=== PATIENT | female | born 1980 | race Caucasian/White ===

== ENCOUNTER 2020-02-01 06:49 | Emergency (ER) | payer OTHER ==
[~2020-02-01] VITALS: Ht 152.4 cm; Wt 81.6 kg
[2020-02-01] MEDS ORDERED: SINGULAIR10 MG PO (07:09)
[2020-02-01] MEDS ORDERED: PROVENTIL HFA6.7 GM INH (07:10)
--- NOTE | 2020-02-01 07:35 | Emergency Department Note ---
History of Present Illnes History of Present Illness Chief Complaint: General Medicine Complaints History of Present Illness This is a 39 year old female Chief Complaint Comment coughing with clear phlem x one wk. non smoker. no covid testing. aaox4. ambulatory.pt states, "other than right now, i've never left my house since July."......no acute distress noted at tiime of triage. pt takes flonaze and zyrtec and states hx seasonal allergie s. Historian: Patient, Family Member Arrival Mode: Car Sofa Inspector Required: No Onset (how long ago): month(s) Location: Sinus Quality: drainage Radiation: Reports non-radiation Severity: moderate Onset quality: gradual Duration (how long): month(s) Timing of current episode: constant Progression: worsening Chronicity: chronic Context: Denies recent illness, Denies recent surgery Relieving factors: none Exacerbating factors: none Associated symptoms: Reports denies other symptoms Treatments prior to arrival: none Past Medical/Family History Physician Review I have reviewed the patient's past medical and family history. Any updates have been documented here. Past Medical History Recent Fever: No Clinical Suspicion of Infectio: No New/Unexplained Change in Ment: No Other Medical History: obesity "seasonal allergies" Past Surgical History: None Social History Smoking Cessation: Never Smoker Counseling Performed: No Alcohol Use: None Any Illegal Drug Use: No Physically hurt or threatened: No Other Any Pre-Existing Lines (PICC,: No Review of Systems Review of Systems Constitutional: Reports as per HPI EENTM: Reports as per HPI Cardiovascular: Reports no symptoms Respiratory: Reports no symptoms Gastrointestinal: Reports no symptoms Genitourinary: Reports no symptoms Musculoskeletal: Reports no symptoms Integumentary: Reports no symptoms Neurological: Reports no symptoms Psychological: Reports no symptoms Endocrine: Reports no symptoms Hematological/Lymphatic: Reports no symptoms Physical Exam Related Data Allergies: Coded Allergies: No Known Allergies (Unverified , 02/01/20) Triage Vital Signs Vital Signs Date Time Temp Pulse Resp B/P (MAP) Pulse Ox O2 Delivery O2 Flow Rate FiO2 02/01/20 06:56 98.4 103 14 156/97 100 Room Air Vital signs reviewed: Yes Physical Exam CONSTITUTIONAL Constitutional: Present well-developed, Present well-nourished HENT HENT: Present normocephalic, Present atraumatic, Present oropharynx clear/moist, Present nasal discharge, Present rhinorrhea; Absent oropharyngeal exudate, Absent tonsillar excudate, Absent pharynx abnormal HENT L/R: Present left ext ear normal, Present right ext ear normal EYES Eyes: Reports PERRL, Reports conjunctivae normal NECK Neck: Present ROM normal PULMONARY Pulmonary: Present effort normal, Present breath sounds normal CARDIOVASCULAR Cardiovascular: Present regular rhythm, Present heart sounds normal, Present capillary refill normal, Present normal rate GASTROINTESTINAL Abdominal: Present soft, Present nontender, Present bowel sounds normal GENITOURINARY Genitourinary: Present exam deferred SKIN Skin: Present warm, Present dry MUSCULOSKELETAL Musculoskeletal: Present ROM normal NEUROLOGICAL Neurological: Present alert, Present oriented x 3, Present no gross motor or sensory deficits PSYCHOLOGICAL Psychological: Present mood/affect normal, Present judgement normal Assessment & Plan Medical Decision Making MDM 39-year-old female presents for worsening seasonal allergies. She is currently on Flonase and Zyrtec. Examination is largely unremarkable but does show some rhinorrhea. No signs of sinus infection. Initial differential includes sinusitis versus seasonal allergies versus viral upper respiratory infection among others. Diagnosis favors seasonal allergies. We'll start her on Singulair and also wrote her a prescription for albuterol inhaler for her mild intermittent asthma. She w ill follow-up with her primary doctor concerning further issues with this or return to emergency department for worsening symptoms. Patient's appropriate for discharge. Reassessment Reassessment time: 07:34 Reassessment Well appearing, NAD Assessment & Plan Final Impression: (1) Seasonal allergies Depart Disposition: HOME, SELF-CARE Last Vital Signs Date Time Temp Pulse Resp B/P (MAP) Pulse Ox O2 Delivery O2 Flow Rate FiO2 02/01/20 06:56 98.4 103 14 156/97 100 Room Air Home Meds Active Scripts Albuterol Sulfate (PROVENTIL HFA) 6.7 Gm Hfa.aer.ad, 2 INH INH Q4HR PRN for SHORTNESS OF BREATH, #2 INH Prov:ADITI HERRERA MD 02/01/20 Montelukast Sodium (SINGULAIR) 10 Mg Tablet, 10 MG PO DAILY, #30 TAB Prov:ADITI HERRERA MD 02/01/20 ADITI HERRERA MD Feb 01, 2020 07:35
== END 2020-02-01 07:46 | disposition home or self-care (01) ==
LOC: FSED 07:06
DX: R05 Cough (principal); J30.2 Other seasonal allergic rhinitis; E66.9 Obesity, unspecified
CPT/HCPCS: 99283